=== PATIENT | female | born 1955 | race Caucasian/White ===

== ENCOUNTER 2022-06-24 00:40 | Observation (INO) | payer MEDICARE, MEDICAID, SELFPAY ==
[2022-06-24] VITALS (97 sets, daily range): BP systolic 143–222; BP diastolic 73–118; PULSE 77–113; RESP 13–36; TEMP 36.3–36.7; O2SAT 90–100; BMI 21.1
--- NOTE | 2022-06-24 00:57 | PC.NURSE ---
After getting patient into the room , she has become confused, combative and is resistant to care. Pt. was screaming and trying to grab staff.
--- NOTE | 2022-06-24 00:58 | ECG_ITS ---
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 Measurements Intervals [place] Rate: 95 P: WI: QRS: 72 QRSD: 93 T: 66 QT: 366 QTc: 460 Interpretive Statements Sinus rhythm No previous ECG available for comparison Electronically Signed On 06-24-2022 8:24:58 CDT by Rupesh Roberts M.D. [email or web address]
--- NOTE | 2022-06-24 00:58 | XRR_ITS ---
PROCEDURE INFORMATION: Exam: XR Chest Exam date and time: 06/24/2022 1:18 AM Age: 66 years old Clinical indication: Shortness of breath; Additional info: AMS TECHNIQUE: Imaging protocol: Radiologic exam of the chest. Views: 1 view. COMPARISON: No relevant prior studies available. FINDINGS: Lungs: There is a patchy infiltrate in the left mid lung suspicious for pneumonia. Pleural spaces: Unremarkable. No pleural effusion. No pneumothorax. Heart/Mediastinum: Unremarkable. No cardiomegaly. Bones/joints: Unremarkable. XR/XR chest 1V portable [id number] IMPRESSION: There is a patchy infiltrate in the left mid lung suspicious for pneumonia.
--- NOTE | 2022-06-24 00:58 | CTR_ITS ---
PROCEDURE INFORMATION: Exam: CT Head Without Contrast Exam date and time: 06/24/2022 1:12 AM Age: 66 years old Clinical indication: Altered mental status/memory loss; Additional info: AMS TECHNIQUE: Imaging protocol: Computed tomography of the head without contrast. Radiation optimization: All CT scans at this facility use at least one of these dose optimization techniques: automated exposure control; mA and/or kV adjustment per patient size (includes targeted exams where dose is matched to clinical indication); or iterative reconstruction. COMPARISON: No relevant prior studies available. RADIATION DOSE METRICS: Total DLP (mGy-cm): 1346.88 FINDINGS: Brain: No cerebral/cerebellar infarct. No brain parenchymal or extra-axial hemorrhage. Cerebral ventricles: No ventriculomegaly. Paranasal sinuses: Paranasal sinuses are clear. No air-fluid level. Mastoid air cells: Visualized mastoid air cells are clear. Bones/joints: No calvarial or skull base fracture. Soft tissues: Right frontal scalp hematoma. CT/CT head wo con* [id number] IMPRESSION: 1. No acute infarct or hemorrhage. 2. No calvarial or skull base fracture.
[2022-06-24 01:11] LABS: Basophils # 0.1 10^3/uL (0.0-0.1); Eosinophils % 0.3 %; Hematocrit 40.3 % (37.0-47.0); Hemoglobin 12.6 g/dL (11.5-15.3); Lymphocytes # 1.4 10^3/uL (0.8-4.8); Lymphocytes % 16.3 %; Mean Corpuscular HGB Conc 31.3 g/dL (30.0-36.0); Mean Corpuscular Hemoglobin 27.2 pg (28.0-34.0); Mean Corpuscular Volume 86.9 fl (81-99); Mean Platelet Volume 10.2 fL (7.4-10.4); Monocytes # 0.6 10^3/uL (0.2-0.9); Monocytes % 6.8 %; Neutrophils # 6.57 10^3/uL (1.8-7.7); Neutrophils % 75.4 %; Nucleated Red Blood Cells % 0 %; Platelet Count 421 10^3/cmm (130-400); Red Blood Count 4.64 10^6/uL (4.1-5.3); White Blood Count 8.7 10^3/uL (4.0-10.0)
[2022-06-24 01:26] LABS: ABG PCO2 39.2 mmHg (35-45); ABG PH Result 7.41 (7.35-7.45); Base Excess ABG -0.1 mmol/L (-2.0-2.0); Blood Gas Allen Test Pos; Blood Gas Operator Identificat WALCI; Blood Gas Sample Site Radial, left; Blood Gas Sample Type Arterial; HCO3 ABG 24.6 mmol/L (22-26); Oxygen Device NC; PO2 ABG 72.6 mmHg (80.0-100.0)
[2022-06-24 01:34] LABS: Alanine Aminotransferase 10 U/L (0-33); Albumin Level 4.3 g/dL (3.5-5.2); Alkaline Phosphatase 96 U/L (35-105); Anion Gap 21.2 (5-19); Aspartate Amino Transferase 22 U/L (0-32); Blood Urea Nitrogen 10 mg/dL (8-23); Calcium 9.3 mg/dL (8.5-10.5); Carbon Dioxide 21 mmol/L (22-29); Chloride 106 mmol/L (98-107); Globulin 2.7 g/dL (1.3-4.6); Glucose 139 mg/dL (65-115); Osmolality Calculated 301 mOsm/kg (285-295); Potassium 3.2 mmol/L (3.5-5.1); Sodium 145 mmol/L (136-145); Total Bilirubin 0.4 mg/dL (0.15-1.2)
[2022-06-24 01:35] LABS: Ammonia 43 umol/L (11-51)
[2022-06-24 01:38] LABS: Acetaminophen < 5.0 ug/mL (10-30); Alcohol Level < 10 mg/dL (0-10); Creatine Phosphokinase 386 U/L (26-192); Salicylate < 0.3 mg/dL (3-10)
[2022-06-24] MEDS: midazolam 1 mg/mL INJ 2 mL 2 MG IVP ×2 (01:41→04:55)
[2022-06-24] MEDS: ziprasidone 20 mg/mL SDV IM (01:41)
[2022-06-24 03:02] LABS: Bilirubin Urine Neg (Negative); Blood Urine 2+ (Negative); Glucose Urine UA Norm (Normal); Ketones Urine 1+ (Negative); Leukocyte Esterase Urine 2+ (Negative); Nitrate Urine Negative (Negative); Protein Urine Neg (Negative); Urine Appearance Cloudy (CLEAR); Urine Color Yellow (Yellow); Urobilinogen Urine Norm (Negative); pH Urine 5 (5-7)
[2022-06-24 03:03] LABS: Add Urine Microscopic? YES
[2022-06-24 03:06] LABS: Amphetamines Screen Urine Negative (Negative); Barbiturates Screen Urine Negative (Negative); Benzodiazepines Screen Urine Negative (Negative); Cocaine Screen Urine Negative (Negative); Opiate Screen Urine Positive (Negative); PCP Screen Urine Negative (Negative); THC Screen Urine Positive (Negative)
[2022-06-24 03:07] LABS: RBC Urine 0-4 /hpf (0-2); WBC Urine 25-40 /hpf (0-5)
[2022-06-24 03:08] LABS: Add Urine Culture? No; Bacteria Urine 2+ /hpf; Hyaline Casts Urine RARE /lpf; Mucus Urine TRACE /hpf; Squamous Epithelial Cell Urine 25-40 /hpf (0-5)
[2022-06-24] MEDS: sodium chloride 0.9% 1,000 ML 999 ML IV ×2 (04:55→06:17)
[2022-06-24] MEDS: cefTRIAXone 1,000 MG in sodium chloride 0.9% (plus) 50 ML 100 MG IV (04:55)
--- NOTE | 2022-06-24 05:15 | ED.C_ITS ---
HPI - Psych General: Chief Complaint: Psychiatric Symptoms Stated Complaint: PSYCH EVAL - AMS Time Seen by Provider: 06/24/22 00:45 Source: patient and EMS History of Present Illness: 66-year-old female presents by ambulance. Evidently police were called for a well check to her home, and found her naked in bed screaming, not making sense. She presents here saying some words, but not answering questions appropriately. She is thrashing about in bed. She is given IM ketamine on arrival due to agitation with some thrashing about as a precaution. She is a poor historian. complaint: altered mental status Onset (ago): unknown Duration: constant History of same: No Relieving factors: none Exacerbating factors: none Associated psychiatric symptoms: other Associated symptoms: Reports delusions Treatments prior to arrival: none Review of Systems General: Reports: ROS unobtainable due to medical condition and ROS unobtaina ble due to mental status [facility] PFSH: Surgical History History of tubal ligation Social History Smoking and tobacco status: current every day smoker Alcohol intake: never Substance/Drug Use: never Physical Exam Const: COMMON NORMALS: alert EXAM LIMITATIONS: altered mental status and behavioral limitations GENERAL APPEARANCE: in distress and ill appearing; not cooperative ORIENTATION/CONSCIOUSNESS: Yes oriented to person; not oriented to place and not oriented to time HENMT: COMMON NORMALS: normocephalic, atraumatic and Normal external nose present HEAD & SCALP: normocephalic and atraumatic FACE & SINUS: normal facial exam and face symmetric NOSE: Normal external nose present Eye: COMMON NORMALS: Equal, round and reactive pupils present and EOMs intact bilaterally PUPIL: Yes Equal, round and reactive pupils present Neck/C-Spine: GENERAL: Yes trachea midline Chest: COMMONS NORMALS: normal inspection of the chest CHEST: Yes Symmetrical chest wall rise Resp: COMMON NORMALS: normal respiratory effort, No retractions and No use of accessory muscles Cardio: COMMON NORMALS: regular rhythm RATE: tachycardic RHYTHM: regular rhythm GI: INSPECTION: Yes normal to inspection and No abdominal distension Extremity: COMMON NORMALS: normal to inspection and full ROM Neuro: KRISTA COMA SCALE: document GCS findings Krista coma scale eye opening: Spontaneous [place] coma scale verbal response: Confused [place] coma scale motor response: Localising [place] coma scale total score: 13 SENSORIUM/ORIENTATION: Yes alert, Yes oriented to person, No oriented to place and No oriented to time SPEECH: speech normal MOTOR EXAM: 5/5 motor strength present throughout Psych: ATTITUDE: Yes uncooperative, Yes Belligerent attititude/behavior present, Yes agitated, Yes aggressive and Yes hostile ACTIVITY/MOTOR BEHAVIOR: Yes psychomotor agitation SPEECH: Yes loud and No slurred MOOD & AFFECT: Yes Labile affect present THOUGHT PROCESS: disorganized THOUGHT CONTENT: Yes delusions ATTENTION/CONCENTRATION: Yes attention grossly impaired MEMORY/COGNITION: Yes memory grossly impaired and Yes cognition grossly impaired INSIGHT: Poor insight present (Psych) JUDGEMENT: Limited judgement present (Psych) Skin: COMMON NORMALS: no wounds Face to Face: Restrn/Seclusion Events leading up to initiation: Verbalizing threat to self or others and Combative/Striking out at staff or others Evaluation of patient's immediate situation: No signs of psychological distress Patient reaction since intervention applied: De-escalation/no displays of violent/destructive behavior Recent labs reviewed: Yes Review of medications: Yes Patient's current medical/behavioral condition: No new concerns since last ROS Need for restraint or seclusion is: No longer present Attending notified: Attending completed assessment Course Vital Signs: Vital signs: Vital Signs Temperature 97.3 F L 06/24/22 00:41 Pulse Rate 96 06/24/22 13:00 Respiratory Rate 15 06/24/22 13:00 Blood Pressure 169/94 06/24/22 13:00 Pulse Oximetry 100 06/24/22 13:00 Oxygen Delivery Me thod 06/24/22 13:00 Oxygen Flow Rate 4 06/24/22 01:27 [facility] - Psych Medical Decision Making 66-year-old female with significant mental status change. She presents agitated, thrashing about, swinging out somewhat violently. She had to be physically restrained for a very short period, followed by ketamine injection intramuscularly and then Geodon and midazolam. This seemed to work well. She answer some questions appropriately, knows her 's phone number and that he is in the hospital in [place]. Other question she does not answer appropriately. Her vitals are stable. She was placed on oxygen following sedative injection for a short duration. CBC is essentially normal. Her potassium is mildly low. She is hydrated with IV fluids. There may be a patchy infiltrate in the left upper midlung field by x-ray. Head CT is negative. She is treated with IV Rocephin. She will be admitted for acute mental status change. Her urine drug screen is positive for opiates and marijuana. She is not intoxicated with alcohol. Urinalysis is contaminated, but does show 2+ l eukocyte esterase. Lab Data : 06/24/22 01:04 06/24/22 01:04 Radiology Impressions Chest X-Ray 06/24/22 00:58 IMPRESSION: There is a patchy infiltrate in the left mid lung suspicious for pneumonia. Head CT 06/24/22 00:58 IMPRESSION: 1. No acute infarct or hemorrhage. 2. No calvarial or skull base fracture. Laboratory Results WBC 8.7 10^3/uL (4.0-10.0) 06/24/22 01:04 RBC 4.64 10^6/uL (4.1-5.3) 06/24/22 01:04 Hgb 12.6 g/dL (11.5-15.3) 06/24/22 01:04 Hct 40.3 % (37.0-47.0) 06/24/22 01:04 MCV 86.9 fl (81-99) 06/24/22 01:04 MCH 27.2 pg (28.0-34.0) L 06/24/22 01:04 MCHC 31.3 g/dL (30.0-36.0) 06/24/22 01:04 RDW 14.0 % (12.1-15.1) 06/24/22 01:04 Plt Count 421 10^3/cmm (130-400) H 06/24/22 01:04 MPV 10.2 fL (7.4-10.4) 06/24/22 01:04 Neut % (Auto) 75.4 % 06/24/22 01:04 Lymph % (Auto) 16.3 % 06/24/22 01:04 [place] % (Auto) 6.8 % 06/24/22 01:04 Eos % (Auto) 0.3 % 06/24/22 01:04 Baso % (Auto) 1.0 % 06/24/22 01:04 Neut # (Auto) 6.57 10^3/uL (1.8-7.7) 06/24/22 01:04 Lymph # (Auto) 1.4 10^3/uL (0.8-4.8) 06/24/22 01:04 [place] # (Auto) 0.6 10^3/uL (0.2-0.9) 06/24/22 01:04 Eos # (Auto) 0.0 10^3/uL (0.0-0.8) 06/24/22 01:04 Baso # (Auto) 0.1 10^3/uL (0.0-0.1) 06/24/22 01:04 Nucleated RBC % (auto) 0 % 06/24/22 01:04 Nucleated RBCs # 0.0 /100WBC 06/24/22 01:04 ESR 36 mm/hr (0-15) H 06/24/22 01:04 Specimen Type Arterial 06/24/22 01:15 Sample Site Radial, left 06/24/22 01:15 ABG pH 7.41 (7.35-7.45) 06/24/22 01:15 ABG pCO2 39.2 mmHg (35-45) 06/24/22 01:15 ABG pO2 72.6 mmHg (80.0-100.0) L 06/24/22 01:15 ABG HCO3 24.6 mmol/L (22-26) 06/24/22 01:15 ABG Base Excess -0.1 mmol/L (-2.0-2.0) 06/24/22 01:15 Hermann Test Pos 06/24/22 01:15 Hematocrit 38.0 % (37-47) 06/24/22 01:15 O2 Delivery Device Nc 06/24/22 01:15 O2 Liters/Min 4.0 % 06/24/22 01:15 Anthropology Instructor ID [place] 06/24/22 01:15 Sodium 145 mmol/L (136-145) 06/24/22 01:04 Potassium 3.2 mmol/L (3.5-5.1) L 06/24/22 01:04 Chloride 106 mmol/L (98-107) 06/24/22 01:04 Carbon Dioxide 21 mmol/L (22-29) L 06/24/22 01:04 Anion Gap 21.2 (5-19) H 06/24/22 01:04 BUN 10 mg/dL (8-23) 06/24/22 01:04 Creatinine 0.6 mg/dL (0.5-0.9) 06/24/22 01:04 GFR Calculation 100.0 mL/min (90-130) 06/24/22 01:04 Glucose 139 mg/dL (65-115) H 06/24/22 01:04 Calculated Osmolality 301 mOsm/kg (285-295) H 06/24/22 01:04 Lactate 4.0 mmol/L (0.5-2.2) H 06/24/22 01:04 Calcium 9.3 mg/dL (8.5-10.5) 06/24/22 01:04 Total Bilirubin 0.4 mg/dL (0.15-1.2) 06/24/22 01:04 AST 22 U/L (0-32) 06/24/22 01:04 ALT 10 U/L (0-33) 06/24/22 01:04 Alkaline Phosphatase 96 U/L (35-105) 06/24/22 01:04 Ammonia 43 umol/L (11-51) 06/24/22 01:04 Creatine Kinase 386 U/L (26-192) H* 06/24/22 01:04 C-Reactive Protein 31.3 mg/L (0.0-4.9) H 06/24/22 01:04 NT-Pro-B Natriuret Pep 467 pg/mL (0-125) H 06/24/22 01:04 Total Protein 7.0 g/dL (6.6-8.7) 06/24/22 01:04 Albumin 4.3 g/dL (3.5-5.2) 06/24/22 01:04 Globulin 2.7 g/dL (1.3-4.6) 06/24/22 01:04 Procalcitonin 0.06 ng/mL (0-0.5) 06/24/22 01:04 Urine Color Yellow (Yellow) 06/24/22 02:54 Urine Appearance Cloudy (CLEAR) 06/24/22 02:54 Urine pH 5 (5-7) 06/24/22 02:54 Ur Specific [place] 1.020 (1.005-1.030) 06/24/22 02:54 Urine Protein Neg (Negative) 06/24/22 02:54 Urine Glucose (UA) Norm (Normal) 06/24/22 02:54 Urine Ketones 1+ (Negative) H 06/24/22 02:54 Urine Blood 2+ (Negative) H 06/24/22 02:54 Urine Nitrate Negative (Negative) 06/24/22 02:54 Urine Bilirubin Neg (Negative) 06/24/22 02:54 Urine Urobilinogen Norm mg/dL (Negative) 06/24/22 02:54 Ur Leukocyte Esterase 2+ (Negative) H 06/24/22 02:54 Urine RBC 0-4 /hpf (0-2) H 06/24/22 02:54 Urine WBC 25-40 /hpf (0-5) H 06/24/22 02:54 Ur Squamous Epith Cells 25-40 /hpf (0-5) H 06/24/22 02:54 Amorphous Sediment Not Reportable 06/24/22 02:54 Urine Bacteria 2+ /hpf (NONE) H 06/24/22 02:54 Hyaline Casts Rare /lpf 06/24/22 02:54 Urine Mucus Trace /hpf 06/24/22 02:54 Salicylates < 0.3 mg/dL (3-10) L 06/24/22 01:04 Salicylates Cancelled 06/24/22 01:04 Urine Opiates Screen Positive ng/mL (Negative) H 06/24/22 02:54 Acetaminophen < 5.0 ug/mL (10-30) L 06/24/22 01:04 Acetaminophen Cancelled 06/24/22 01:04 Ur Barbiturates Screen Negative ng/mL (Negative) 06/24/22 02:54 Ur Phencyclidine Scrn Negative ng/mL (Negative) 06/24/22 02:54 Ur Amphetamines Screen Negative ng/mL (Negative) 06/24/22 02:54 U Benzodiazepines Scrn Negative ng/mL (Negative) 06/24/22 02:54 Urine Cocaine Screen Negative ng/mL (Negative) 06/24/22 02:54 U Marijuana (THC) Screen Positive ng/mL (Negative) H 06/24/22 02:54 Ethyl Alcohol < 10 mg/dL (0-10) 06/24/22 01:04 Discharge Plan Discharge Patient Disposition: Admitted As Inpatient Admit Provider: Dionicio Henson Clinical Impression: Altered mental status, Acute UTI, Pneumonia Condition: Stable Coding Level of Care Code ED Auto Porter for Chg Fwd Exam Problem Focused
--- NOTE | 2022-06-24 05:46 | PM.HP ---
Providers/Chief Complaint Admitting Physician: Dionicio Henson MD Primary Care Provider: Heidi Sullivan DO Chief Complaint: PSYCH EVAL - AMS History of Present Illness Martina Alberts is a 66 year old female who presents by ambulance, due to concerns for altered mental status. The story that I received from the emergency room, was police were called out to patient's home for a wellness check, and found her naked in bed screaming, not making sense. She is thrashing around in bed, not making sense, poor historian, so she was brought to [facility] for evaluation. In the emergency room due to her agitation, she received ketamine, Versed, fluids, antibiotics, Geodon. During my examination she is a bit more calm, but her speech seems pressured, and her expressions seem exaggerated. She is alert to person, to place, she knows the year, she knows the president. She tells me that she is here in the hospital because her could not reach her so he called the police. She also keeps repeating his Social Security number, she wants me to check it. She tells me that she does not know why she is here, she really does not have any complaints, she tells me that she lives here in [place], then corrects herself to [place], her children I will off she tells me that her is in [place], possibly hospitalized I cannot get the details of the information from her, as she keeps jumping from [id number]. It is difficult to get a straightforward answer from her. She keeps wanting to sit up, she does complain of back pain, she does tell me that she took hydrocodone and baclofen and something else she cannot remember for her back pain. She tells me her doctor gave it to her, she also took another medication which she cannot remember. She does not know the medications she takes, she is trying to remember them but she cannot name them. Denies any heart, denies history of stroke, present history of lung disease, adamantly declines marijuana use. She is not sure how many pills she took, she denies any suicidal ideation, denies any headache, no blurry vision, no nausea, vomiting, Review of Systems Const: Denies: fever(s) or chills Eyes: Denies: change in vision Card: Denies: chest pain Resp: Denies: dyspnea GI: Denies: abdominal pain : Denies: flank pain or difficulty voiding Musc: Denies: back pain Neuro: Denies: headache(s) or Slurred speech present Medications/Allergies Allergies Allergy/AdvReac Type Severity Reaction Status Date / Time Penicillins Allergy Unknown Verified 06/24/22 04:46 PFSH Acute PFSH: Surgical History (Updated 06/24/22 @ 05:50 by Dionicio Henson MD) History of tubal ligation Social History (Updated 06/24/22 @ 05:50 by Dionicio Henson MD) Smoking and tobacco status: current every day smoker Alcohol intake: never Substance/Drug Use: never Vitals/I&O/Wt Last Vital Signs Temp 97.3 F L 06/24/22 00:41 Pulse 79 06/24/22 01:27 Resp 20 H 06/24/22 01:27 BP 168/84 06/24/22 01:27 Pulse Ox 98 06/24/22 01:27 O2 Del Method 06/24/22 01:27 O2 Flow Rate 4 06/24/22 01:27 Weight last 48 hrs Weight 61.235 kg Physical Exam Const: COMMON NORMALS: no acute distress and patient oriented x3 HENMT: COMMON NORMALS: normocephalic HEAD & SCALP: normocephalic Neck/C-Spine: COMMON NORMALS: no JVD Resp: COMMON NORMALS: normal respiratory effort, No retractions, No use of accessory muscles and clear to auscultation bilaterally AUSCULTATION: clear to auscultation bilaterally Cardio: COMMON NORMALS: no JVD, regular rate, regular rhythm, S1 normal heart sound present and S2 normal heart sound present RATE: regular rate RHYTHM: regular rhythm HEART SOUNDS: S1 normal heart sound present and S2 normal heart sound present GI: COMMON NORMALS: Normal to inspection, nondistended, normoactive bowel sounds present, Soft to palpation, non-tender, No hepatosplenomegaly present, no masses and no bruits PALPATION: Yes Soft to palpation and Yes No hepatosplenomegaly present Extremity: COMMON NORMALS: capillary refill normal, no clubbing, cyanosis or edema, no calf tenderness and no pedal edema Neuro: COMMON NORMALS: patient oriented x3, CN's II-XII intact bilaterally, moves all extremities and no focal motor deficits Psych: APPEARANCE: Yes unkempt ATTITUDE: Yes bizarre ACTIVITY/MOTOR BEHAVIOR: Yes psychomotor agitation and Yes hyperactivity SPEECH: Yes excessive and Yes rapid MOOD & AFFECT: Yes elevated mood THOUGHT PROCESS: disorganized and Flight of ideas present THOUGHT CONTENT: No Suicidality present and No Homicidality present ATTENTION/CONCENTRATION: Yes attention grossly impaired and Yes concentration grossly impaired Data : 06/24/22 01:04 06/24/22 01:04 A&P Assessment and plan (1) Altered mental status: Status: Acute Plan Altered mental status -Etiology unclear -Potentially polypharmacy, with marijuana, hydrocodone, baclofen and other medications which she cannot remember -Possible medication overdose -Chest x-ray does show pneumonia -Potential UTI -Further blood work has been ordered Plan -Monitor in ICU -Broad-spectrum antibiotic therapy -Follow blood cultures -Serial EKGs serial troponins, telemetry monitoring -Full code -Lovenox for DVT prophylaxis -If the rest of her blood work comes back negative and her mentation remains confused, she might require further work-up, potentially's psychiatric evaluation Attestations Medical Necessity Statement*: Patient requires hospitalization, outpatient observation, for altered mental status Coding Level of Care Code Acute Regional Refrigerated Cdl Truck Driver for Jostin Cabrera Diagnoses Altered mental status R41.82
[2022-06-24 05:54] LABS: Erythrocyte Sedimentation Rate 36 mm/hr (0-15)
[2022-06-24 06:05] LABS: NT Pro B Type Natriuretic Pept 467 pg/mL (0-125); Procalcitonin 0.06 ng/mL (0-0.5)
[2022-06-24 06:16] LABS: C Reactive Protein 31.3 mg/L (0.0-4.9)
[2022-06-24 06:28] LABS: Ammonia 17 umol/L (11-51); Troponin(5th) Baseline 15 ng/L (0-10)
[2022-06-24 06:30] LABS: Lactic Sepsis W/Reflex 1.1 mmol/L (0.5-2.2)
--- NOTE | 2022-06-24 07:08 | PC.NURSE ---
Patient transported to ICU 3 on portable monitoring via stretcher by NOÉ Bennett. Patient has generalized bumps bruising throughout body. Large knot with bruise above right eye. Patient is alert and oriented to self. Does not know time, place, or location. Left thigh is swollen around injection site.
--- NOTE | 2022-06-24 07:21 | ECG_ITS ---
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 Measurements Intervals [place] Rate: 78 P: MT: QRS: 69 QRSD: 91 T: 52 QT: 380 QTc: 434 Interpretive Statements Sinus rhythm ABNORMAL RHYTHM ECG Compared to ECG 06/24/2022 01:00:37 No change Electronically Signed On 06-24-2022 18:14:18 CDT by Rupesh Roberts M.D. [id number]
[2022-06-24] MEDS: azithromycin 500 MG in sodium chloride 0.9% 250 ML 250 MG IV (07:25)
[2022-06-24] MEDS: sodium chloride 0.9% 1,000 ML 75 ML IV (07:25)
[2022-06-24] MEDS: enoxaparin 40 mg/0.4 mL Syringe SUBCUT (07:26)
[2022-06-24] MEDS: pantoprazole DR 40 mg Tablet PO (08:19)
[2022-06-24] MEDS: ondansetron 2 mg/ML SDV 2 mL 4 MG IVP (08:19)
[2022-06-24 08:27] LABS: Troponin 5 2HR 10.75 ng/L (0-10)
[2022-06-24 08:53] LABS: Troponin 5 2HR Delta -4.25 ABS# (0-10)
[2022-06-24 11:56] LABS: Troponin 5 6HR 11.67 ng/L (0-10)
[2022-06-24 13:06] LABS: Troponin 5 6HR Delta -3.33 ng/L (0-12)
--- NOTE | 2022-06-24 15:47 | PM.MISC ---
Miscellaneous Note Note: I spoke with patient's this morning, Patient was seen in the ICU She is awake and alert, no signs of confusion She is able to tell me her name, date of , she is not disoriented at all When asked about marijuana use she said she has been taking CBD Gummies from an authentic licensed store At the time of my evaluation I did not appreciate any strokelike features No facial droop She is able to move her extremities No asterixis No active signs of meningitis or encephalitis She is afebrile Able to follow commands Very pleasant and cooperative during my evaluation Looks dehydrated She has multiple bruises and erythema nodosum all over her shins bilaterally No active bleeding No joint pain S1, S2 No active chest pain Breathing well on room air Her speech is pressured however she is calm and cooperative Disorganized thinking Assessment and plan Metabolic encephalopathy related to UTI and community-acquired pneumonia This is also exacerbated secondary to polypharmacy and marijuana Conservative management She can be transferred out of ICU I would not recommend hydroxyzine or temazepam/baclofen during her hospitalization She is endorsing to using CBD Gummies No signs of stroke or encephalitis She is hypertensive Optimize antihypertensive regimen at home takes lisinopril 10 mg, will increase up to 40 mg Continue antibiotics for her UTI We will follow-up urine culture Hypokalemia: Repleted Lactic acidemia related to dehydration: Improved No QTC prolongation Troponin trending down TSH 2.2, check free T4 level Spoke with her She is full code Once her organic causes are treated she will need psych evaluation Regular diet DVT prophylaxis with Lovenox on board Secondary to hypertension I will discontinue her IV fluids
[2022-06-24] MEDS: lisinopril 10 mg Tablet 30 MG PO (16:57)
[2022-06-24] MEDS: amlodipine 5 mg Tablet PO (16:58)
--- NOTE | 2022-06-24 17:10 | PC.NURSE ---
Patient request that I call [place] police to see that her front door is locked. This was done.
[2022-06-24 17:17] LABS: Ammonia 31 umol/L (11-51)
[2022-06-24 17:26] LABS: Free T4 Free Thyroxine 1.14 ng/dL (0.82-1.77)
[2022-06-25] VITALS (62 sets, daily range): BP systolic 130–152; BP diastolic 64–85; PULSE 73–103; RESP 10–27; TEMP 36.9; O2SAT 94–98
[2022-06-25 04:30] LABS: Basophils # 0.1 10^3/uL (0.0-0.1); Basophils % 1.3 %; Eosinophils # 0.1 10^3/uL (0.0-0.8); Eosinophils % 1.8 %; Hematocrit 32.1 % (37.0-47.0); Hemoglobin 9.6 g/dL (11.5-15.3); Lymphocytes # 1.5 10^3/uL (0.8-4.8); Lymphocytes % 24.4 %; Mean Corpuscular HGB Conc 29.9 g/dL (30.0-36.0); Mean Corpuscular Hemoglobin 27.2 pg (28.0-34.0); Mean Corpuscular Volume 90.9 fl (81-99); Mean Platelet Volume 10.5 fL (7.4-10.4); Monocytes # 0.5 10^3/uL (0.2-0.9); Neutrophils # 3.81 10^3/uL (1.8-7.7); Neutrophils % 63.3 %; Nucleated Red Blood Cells % 0 %; Platelet Count 299 10^3/cmm (130-400); Red Blood Count 3.53 10^6/uL (4.1-5.3); Red Cell Distribution Width 14.6 % (12.1-15.1)
[2022-06-25 04:59] LABS: Alanine Aminotransferase 9 U/L (0-33); Albumin Level 3.1 g/dL (3.5-5.2); Alkaline Phosphatase 73 U/L (35-105); Anion Gap 12.8 (5-19); Aspartate Amino Transferase 20 U/L (0-32); Blood Urea Nitrogen 6 mg/dL (8-23); Calcium 8.5 mg/dL (8.5-10.5); Carbon Dioxide 26 mmol/L (22-29); Chloride 107 mmol/L (98-107); Globulin 2.7 g/dL (1.3-4.6); Glomerular Filtration Rate 159.7 mL/min (90-130); Glucose 106 mg/dL (65-115); Magnesium 1.9 mg/dL (1.7-2.3); Osmolality Calculated 292 mOsm/kg (285-295); Potassium 3.8 mmol/L (3.5-5.1); Sodium 142 mmol/L (136-145); Total Bilirubin 0.2 mg/dL (0.15-1.2); Total Protein 5.8 g/dL (6.6-8.7)
[2022-06-25 05:01] LABS: C Reactive Protein 19.9 mg/L (0.0-4.9); Creatine Phosphokinase 254 U/L (26-192)
--- NOTE | 2022-06-25 07:30 | PC.NURSE ---
Shift Note Frequent safety and comfort rounds continue. Orders and/or nursing care completed as indicated. Patient monitored for response to intervention and treatment(s). Education provided includes medication and treatment plan. Patient verbalized understanding of teaching but needs further reinforcement. Patient remains on room air and is alert/oriented. No wounds or skin issues noted at this time. Patient reported pain overnight, PRN pain medication administered please see MAR for detail. Will continue to monitor.
[2022-06-25] MEDS: azithromycin 250 mg Tablet 500 MG PO (09:17)
[2022-06-25] MEDS: amlodipine 5 mg Tablet PO (09:17)
[2022-06-25] MEDS: enoxaparin 40 mg/0.4 mL Syringe SUBCUT (09:17)
[2022-06-25] MEDS: lisinopril 10 mg Tablet 30 MG PO (09:17)
[2022-06-25] MEDS: pantoprazole DR 40 mg Tablet PO (09:17)
[2022-06-25] MEDS: acetaminophen 325 mg Tablet 650 MG PO ×2 (10:39→16:19)
--- NOTE | 2022-06-25 13:05 | PC.CHAP ---
Pastoral Care Encounter/Spiritual Assessment Type of Contact [] Declined water registrar visit [] Patient/Family/Request visit [] Outpatient visit [] Follow-up visit [] Physician referral [] Code/Alert [x] Routine visit [] Staff referral [] Actively dying [] Patient sleeping [] Family support [] [] Out of room [] Palliative care [] [x] Receiving care in room [] Pre-surgical visit [] Trauma [] Long length of stay [x] ICU visit [] Other: Relational/Emotional Strength [] Patient feels connected with others/family/visitors/staff [] Distress [] Loneliness/isolation [] Abandonment Spirituality of Patient [] Person of Queenie [] Attends Advent of their Queenie [] Believes in Prayer [] Reads Bible or Cheondoism materials [] There are Spiritual issues to be addressed Acquisition Analyst Interventions [x] Prayer [] Active listening [] Non-anxious presence [] Spiritual/emotional support [] Crisis/trauma care [] Spiritual counseling [] Bereavement support [] Provided bereavement packet [] Provided Bible/devotional materials [] Provided toy/stuffed animal, coloring book to patient or family member [] Provided Communion [] Anointing/[place] [] Salvation [x] Completed spiritual assessment [] Other: Impact on Illness or Injury [] Angry [] Fearful [] Anxious [] Often cries [] Exhaustion [] Unable to work [] Unable to attend uatsdin [] Unable to walk/stand [] Unable to read [] Unable to drive [] Unable to eat/drink [] Unable to sleep [] Unable to be with family [] Patient intubated [] Other: Summary Time spent with patient
--- NOTE | 2022-06-25 13:40 | P.DS_ITS ---
Discharge Providers Date of Admission: 06/24/22 05:41 Date of Discharge: June 25, 2022 Attending Provider at Admission: Dionicio Henson MD Attending Provider at Discharge: Beto Byers Primary Care Provider: Heidi Sullivan DO Diagnoses at Discharge Discharge Diagnosis (1) Altered mental status: Status: Acute Reason for Visit Reason for Visit: PSYCH EVAL - AMS Hospital Course Hospital Course 66-year-old lady was admitted after being found confused at home on a wellness check after alcohol by her , in ER with significant confusion, restlessness and agitation, required antipsychotics and sedatives on presentation, with finding of acute encephalopathy of unclear etiology, possibly acute metabolic encephalopathy secondary to medications, baclofen, temazepam were held, as was gabapentin, opioid, and later also reporting CBD gummy use. On presentation urine with pyuria, but also squamous cells, due to possible UTI was empirically covered with antibiotics with ceftriaxone, also received azithromycin due to noted patchy infiltrate in the left midlung suspicious for pneumonia. She is remained afebrile, without leukocytosis. Initially on 4 L oxygen nasal cannula but with recovery in mental status saturating well on room air. She is awake, alert, oriented x3. She reports she is now feeling well, and states that she does remember being confused earlier. She states that she had been under quite a bit of stress recently, had a bad year, including finding of malignancy in her left breast, requiring lumpectomy, subsequently with infection which was poorly healing but has healed since, as well as radiation therapy. She denies any depression, however, and states that she has had good support at home from her . She states that she was in pain in her left thigh due to injection given to her and EMS and states there was a bruise on her leg from the injection being given. She, however, also states the bruise on her knee is from her hitting the 2 x 4 bed frame that she and her have for their waterbed. She denies any falls. She has been getting up here to the commode and states has felt well. She requests to go home. On discharge she is asked to complete antibiotic course with Levaquin for possible pneumonia, possible UTI. Discontinue baclofen dose of temazepam is decreased. Please discuss with her weaning off or continuation on lower dose. Please review intermittently her medications to help avoid the episodes of potentially dangerous encephalopathy. Physical Exam Const: COMMON NORMALS: patient oriented x3 and alert GENERAL APPEARANCE: cooperative ORIENTATION/CONSCIOUSNESS: Yes awake HENMT: COMMON NORMALS: oropharynx normal Neck/C-Spine: COMMON NORMALS: no JVD Resp: COMMON NORMALS: normal respiratory effort and clear to auscultation bilaterally AUSCULTATION: clear to auscultation bilaterally Cardio: COMMON NORMALS: no JVD, regular rhythm, S1 normal heart sound present, S2 normal heart sound present and No murmurs present (Cardio) RHYTHM: regular rhythm HEART SOUNDS: S1 normal heart sound present and S2 normal heart sound present GI: COMMON NORMALS: Normal to inspection, nondistended, normoactive bowel sounds present, Soft to palpation and non-tender PALPATION: Yes Soft to palpation Extremity: COMMON NORMALS: no joint enlargement and no pedal edema Neuro: COMMON NORMALS: patient oriented x3 and moves all extremities SENSORIUM/ORIENTATION: Yes alert Skin: COMMON NORMALS: no rashes or lesions noted GENERAL SKIN EXAM: no swapnil hes or lesions noted OTHER: Bruising of left lower extremity, left knee. Discharge Data Studies Completed and Pending Completed Studies During Hospitalization Category Date Time Status CT head wo con* [id number] Stat Cat Scan 06/24/22 00:58 Completed XR chest 1V portable [id number] Stat Exams 06/24/22 00:58 Completed Pending at discharge Category Date Time Status Blood Culture Stat Lab 06/24/22 05:55 Results Complete Blood Count w/Auto AM LABS Lab 06/26/22 04:00 Ordered Complete Blood Count w/Auto AM LABS Lab 06/27/22 04:00 Ordered Comprehensive Metabolic Panel AM LABS Lab 06/26/22 04:00 Ordered Comprehensive Metabolic Panel AM LABS Lab 06/27/22 04:00 Ordered Drug Screen Serum [Serum Drug Panel 7] Routine Lab 06/24/22 08:00 Received Magnesium AM LABS Lab 06/26/22 04:00 Ordered Magnesium AM LABS Lab 06/27/22 04:00 Ordered Phosphorus AM LABS Lab 06/26/22 04:00 Ordered Phosphorus AM LABS Lab 06/27/22 04:00 Ordered Radiology Impressions Chest X-Ray 06/24/22 00:58 IMPRESSION: There is a patchy infiltrate in the left mid lung suspicious for pneumonia. Head CT 06/24/22 00:58 IMPRESSION: 1. No acute infarct or hemorrhage. 2. No calvarial or skull base fracture. Laboratory Results WBC 6.0 10^3/uL (4.0-10.0) 06/25/22 03:19 RBC 3.53 10^6/uL (4.1-5.3) L 06/25/22 03:19 Hgb 9.6 g/dL (11.5-15.3) L 06/25/22 03:19 Hct 32.1 % (37.0-47.0) L 06/25/22 03:19 MCV 90.9 fl (81-99) 06/25/22 03:19 MCH 27.2 pg (28.0-34.0) L 06/25/22 03:19 MCHC 29.9 g/dL (30.0-36.0) L 06/25/22 03:19 RDW 14.6 % (12.1-15.1) 06/25/22 03:19 Plt Count 299 10^3/cmm (130-400) 06/25/22 03:19 MPV 10.5 fL (7.4-10.4) H 06/25/22 03:19 Neut % (Auto) 63.3 % 06/25/22 03:19 Lymph % (Auto) 24.4 % 06/25/22 03:19 Emmons % (Auto) 9.0 % 06/25/22 03:19 Eos % (Auto) 1.8 % 06/25/22 03:19 Baso % (Auto) 1.3 % 06/25/22 03:19 Neut # (Auto) 3.81 10^3/uL (1.8-7.7) 06/25/22 03:19 Lymph # (Auto) 1.5 10^3/uL (0.8-4.8) 06/25/22 03:19 Emmons # (Auto) 0.5 10^3/uL (0.2-0.9) 06/25/22 03:19 Eos # (Auto) 0.1 10^3/uL (0.0-0.8) 06/25/22 03:19 Baso # (Auto) 0.1 10^3/uL (0.0-0.1) 06/25/22 03:19 Nucleated RBC % (auto) 0 % 06/25/22 03:19 Nucleated RBCs # 0.0 /100WBC 06/25/22 03:19 ESR 36 mm/hr (0-15) H 06/24/22 01:04 Specimen Type Arterial 06/24/22 01:15 Sample Site Radial, left 06/24/22 01:15 ABG pH 7.41 (7.35-7.45) 06/24/22 01:15 ABG pCO2 39.2 mmHg (35-45) 06/24/22 01:15 ABG pO2 72.6 mmHg (80.0-100.0) L 06/24/22 01:15 ABG HCO3 24.6 mmol/L (22-26) 06/24/22 01:15 ABG Base Excess -0.1 mmol/L (-2.0-2.0) 06/24/22 01:15 Hermann Test Pos 06/24/22 01:15 Hematocrit 38.0 % (37-47) 06/24/22 01:15 O2 Delivery Device Nc 06/24/22 01:15 O2 Liters/Min 4.0 % 06/24/22 01:15 [employer] ID [place] 06/24/22 01:15 Sodium 142 mmol/L (136-145) 06/25/22 03:19 Potassium 3.8 mmol/L (3.5-5.1) 06/25/22 03:19 Chloride 107 mmol/L (98-107) 06/25/22 03:19 Carbon Dioxide 26 mmol/L (22-29) 06/25/22 03:19 Anion Gap 12.8 (5-19) 06/25/22 03:19 BUN 6 mg/dL (8-23) L 06/25/22 03:19 Creatinine 0.4 mg/dL (0.5-0.9) L 06/25/22 03:19 GFR Calculation 159.7 mL/min (90-130) H 06/25/22 03:19 Glucose 106 mg/dL (65-115) 06/25/22 03:19 Calculated Osmolality 292 mOsm/kg (285-295) 06/25/22 03:19 Lactic Acid 1.1 mmol/L (0.5-2.2) 06/24/22 05:55 Lactate 4.0 mmol/L (0.5-2.2) H 06/24/22 01:04 Calcium 8.5 mg/dL (8.5-10.5) 06/25/22 03:19 Phosphorus 3.0 mg/dL (2.5-4.5) 06/25/22 03:19 Magnesium 1.9 mg/dL (1.7-2.3) 06/25/22 03:19 Total Bilirubin 0.2 mg/dL (0.15-1.2) 06/25/22 03:19 AST 20 U/L (0-32) 06/25/22 03:19 ALT 9 U/L (0-33) 06/25/22 03:19 Alkaline Phosphatase 73 U/L (35-105) 06/25/22 03:19 Ammonia 31 umol/L (11-51) 06/24/22 16:32 Creatine Kinase 254 U/L (26-192) H 06/25/22 03:19 Troponin T Baseline 15 ng/L (0-10) H 06/24/22 05:55 Troponin T 120 Minute 10.75 ng/L (0-10) H 06/24/22 08:00 Delta Troponin T -4.25 ABS# (0-10) L 06/24/22 08:00 Troponin T Hi Sens 6Hr 11.67 ng/L (0-10) H 06/24/22 11:28 Troponin T Hi Sens 6Hr Delta -3.33 ng/L (0-12) L 06/24/22 11:28 C-Reactive Protein 19.9 mg/L (0.0-4.9) H 06/25/22 03:19 NT-Pro-B Natriuret Pep 467 pg/mL (0-125) H 06/24/22 01:04 Total Protein 5.8 g/dL (6.6-8.7) L 06/25/22 03:19 Albumin 3.1 g/dL (3.5-5.2) L 06/25/22 03:19 Globulin 2.7 g/dL (1.3-4.6) 06/25/22 03:19 Procalcitonin 0.06 ng/mL (0-0.5) 06/24/22 01:04 TSH 0.20 uIU/mL (0.27-4.20) L 06/24/22 05:55 Free T4 1.14 ng/dL (0.82-1.77) 06/24/22 16:32 Urine Color Yellow (Yellow) 06/24/22 02:54 Urine Appearance Cloudy (CLEAR) 06/24/22 02:54 Urine pH 5 (5-7) 06/24/22 02:54 Ur Specific [place] 1.020 (1.005-1.030) 06/24/22 02:54 Urine Protein Neg (Negative) 06/24/22 02:54 Urine Glucose (UA) Norm (Normal) 06/24/22 02:54 Urine Ketones 1+ (Negative) H 06/24/22 02:54 Urine Blood 2+ (Negative) H 06/24/22 02:54 Urine Nitrate Negative (Negative) 06/24/22 02:54 Urine Bilirubin Neg (Negative) 06/24/22 02:54 Urine Urobilinogen Norm mg/dL (Negative) 06/24/22 02:54 Ur Leukocyte Esterase 2+ (Negative) H 06/24/22 02:54 Urine RBC 0-4 /hpf (0-2) H 06/24/22 02:54 Urine WBC 25-40 /hpf (0-5) H 06/24/22 02:54 Ur Squamous Epith Cells 25-40 /hpf (0-5) H 06/24/22 02:54 Amorphous Sediment Not Reportable 06/24/22 02:54 Urine Bacteria 2+ /hpf (NONE) H 06/24/22 02:54 Hyaline Casts Rare /lpf 06/24/22 02:54 Urine Mucus Trace /hpf 06/24/22 02:54 Salicylates < 0.3 mg/dL (3-10) L 06/24/22 01:04 Salicylates Cancelled 06/24/22 01:04 Urine Opiates Screen Positive ng/mL (Negative) H 06/24/22 02:54 Acetaminophen < 5.0 ug/mL (10-30) L 06/24/22 01:04 Acetaminophen Cancelled 06/24/22 01:04 Ur Barbiturates Screen Negative ng/mL (Negative) 06/24/22 02:54 Ur Phencyclidine Scrn Negative ng/mL (Negative) 06/24/22 02:54 Ur Amphetamines Screen Negative ng/mL (Negative) 06/24/22 02:54 U Benzodiazepines Scrn Negative ng/mL (Negative) 06/24/22 02:54 Urine Cocaine Screen Negative ng/mL (Negative) 06/24/22 02:54 U Marijuana (THC) Screen Positive ng/mL (Negative) H 06/24/22 02:54 Ethyl Alcohol < 10 mg/dL (0-10) 06/24/22 01:04 Vitals Last Vital Signs Temp 98.5 F 06/25/22 04:45 Pulse 87 06/25/22 09:00 Resp 20 H 06/25/22 09:00 BP 146/85 06/25/22 08:00 Pulse Ox 98 06/25/22 09:00 O2 Del Method 06/25/22 09:00 O2 Flow Rate 4 06/24/22 01:27 Discharge Plan Discharge Patient Disposition: Home Condition: Stable Prescriptions: New temazepam 7.5 mg capsule 7.5 mg PO BEDTIME Qty: 14 0RF levofloxacin 750 mg tablet 750 mg PO DAILY 7 Days Qty: 7 0RF Continued meloxicam 15 mg tablet 15 mg PO DAILY hydrocodone-acetaminophen 10-325 mg tablet 1 tab PO Q6H PRN (Reason: Pain) omeprazole 40 mg capsule,delayed release(DR/EC) 40 mg PO BID lisinopril 10 mg tablet 10 mg PO DAILY hydroxyzine HCl 25 mg tablet 25 mg PO TID PRN (Reason: Anxiety) gabapentin 100 mg capsule 100 mg PO TID PRN (Reason: Pain) albuterol sulfate 90 mcg/actuation HFA aerosol inhaler 2 puff INHALATION Q6H PRN (Reason: Shortness Of Breath) levocetirizine 5 mg tablet 5 mg PO DAILY PRN (Reason: Allergy Symptoms) lidocaine 5 % ointment 1 applic topical DAILY PRN (Reason: Pain) Jublia 10 % solution with applicator 1 applic TOPICAL DAILY Held hydroxychloroquine 200 mg tablet 400 mg PO DAILY Hold Instructions: Resume on 07/02/22. Discontinued temazepam 15 mg capsule 15 - 30 mg PO BEDTIME baclofen 10 mg tablet 10 - 20 mg PO TID Discharge Orders: Discharge Order (Routine); Ordered 06/25/22 Ordered By: Beto Byers Referrals: Heidi Sullivan, [Primary Care Provider] - 4-7 days Discharge Activity: Increase activity as tolerated Patient Instructions: Temazepam (By mouth), Urinary Tract Infection in Women (GEN), Bacterial Pneumonia (GEN), Encephalopathy (GEN) Activity Restrictions/Additional Instructions: Please avoid any further CBD use. Please stop baclofen. Please reduce temazepam dose to 7.5 mg as prescribed, work with your primary doctor to consider discontinuation of this medication. These medicines may contribute to confusion. He had quite severe confusion on presenting to the hospital which could be potentially risking injury or life-threatening if it recurs. Complete antibiotic course for urinary tract infection and pneumonia. Please follow-up with your primary doctor. Discharge Attestations Time Spent in Discharge Care*: greater than 30 min Quality Metrics Clinical Quality Measures [ No reported AMI, CVA or VTE this stay] Coding Level of Care Code Acute g [facility] note Diagnoses Altered mental status R41.82
--- NOTE | 2022-06-25 15:07 | PC.NURSE ---
Discharge instructions given to patient, IV removed. Patient asked about clothing and shoes, but only belonging listed is a black blanket. Patient noted to have come in naked and combative. Patient notified. She was given paper scrubs to go home in. Waiting on Medicare ride.
--- NOTE | 2022-06-25 17:50 | PC.NURSE ---
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 They have expedited the call due to the length of time.
--- NOTE | 2022-06-25 19:24 | PC.NURSE ---
Nic called for ride. [facility] called and notified.
--- NOTE | 2022-06-25 19:44 | PC.NURSE ---
Discharge Note Patient discharged to [employer] ride service via wheelchair. Discharge instructions reviewed with patient. All belongings returned with patient upon discharge.
[2022-06-27 15:58] LABS: Amphetamine negative; Barbiturates negative; Benzodiazepines negative; Cocaine Metabolites negative; Marijuana(Tetrahydrocannabino) negative; Opiates negative; PCP (Phencyclidine) negative
== END 2022-06-25 19:44 | disposition home or self-care (01) ==
LOC: ER 05:30 → ICU 08:06
PROVIDERS: Internal Medicine; Admitting Provider Family Medicine; Emergency Provider Emergency Medicine; PCP Family Medicine; Visit Provider Internal Medicine
DX: R41.82 Altered mental status, unspecified (principal); F17.210 Nicotine dependence, cigarettes, uncomplicated; Z85.3 Personal history of malignant neoplasm of breast; Z92.3 Personal history of irradiation
CPT/HCPCS: 36415; 36600; 70450; 71045; 80053; 80306; 80307; 81001; 82140; 82550; 82803; 83605; 83735; 83880; 84100; 84145; 84439; 84443; 84484; 85025; 85651; 86140; 87040; 93005; 96365; 96372; 96375; 96376; 99285; G0378; J0456; J0696; J1650; J2250; J2270; J2405; J3486; J3490; J7030; J7050; Q0144

== ENCOUNTER 2024-06-08 05:24 | Emergency (ER) | payer MEDICARE, MEDICAID, SELFPAY ==
[2024-06-08 05:24] VITALS: BP 127/73; PULSE 79; RESP 16; TEMP 36.6; O2SAT 97; BMI 25.0
--- NOTE | 2024-06-08 05:32 | XRR_ITS ---
PROCEDURE INFORMATION: Exam: XR Chest Exam date and time: 06/08/2024 5:38 AM Age: 68 years old Clinical indication: Patient HX: EMS arrival for AMS. Confusion and auditory hallucinations. TECHNIQUE: Imaging protocol: Radiologic exam of the chest. Views: 1 view. COMPARISON: CR XR chest 1V portable [id number] 06/24/2022 1:18 AM FINDINGS: Lungs: Unremarkable. No consolidation. Pleural spaces: Unremarkable. No pleural effusion. No pneumothorax. Heart/Mediastinum: Unremarkable. No cardiomegaly. Advanced diffuse vascular calcification noted. Bones/joints: DJD. XR/XR chest 1V portable [id number] IMPRESSION: No acute findings.
--- NOTE | 2024-06-08 05:32 | CTR_ITS ---
PROCEDURE INFORMATION: Exam: CT Head Without Contrast Exam date and time: 06/08/2024 5:50 AM Age: 68 years old Clinical indication: Altered mental status/memory loss; Patient HX: EMS arrival for AMS. Confusion and auditory hallucinations. TECHNIQUE: Imaging protocol: Computed tomography of the head without contrast. Radiation optimization: All CT scans at this facility use at least one of these dose optimization techniques: automated exposure control; mA and/or kV adjustment per patient size (includes targeted exams where dose is matched to clinical indication); or iterative reconstruction. COMPARISON: CT head wo con* [id number] 06/24/2022 1:12 AM RADIATION DOSE METRICS: Total DLP (mGy-cm): 1072.38 FINDINGS: Brain: No focal hemorrhage or midline shift is identified. The ventricles and parenchyma show mild atrophy and chronic bicerebral white matter ischemic change. Cerebral ventricles: No ventriculomegaly or evidence of hydrocephalus. Paranasal sinuses: The partially assessed sinuses are grossly clear. Mastoid air cells: Visualized mastoid air cells are well aerated. Bones: No displaced skull fracture is noted. Soft tissues: Unremarkable. Vasculature: Diffuse vascular calcifications are present. CT/CT head wo con* [id number] IMPRESSION: 1. No acute intracranial abnormality. 2. Mild age-related changes.
[2024-06-08 05:51] LABS: Basophils # 0.1 10^3/uL (0.0-0.1); Basophils % 0.8 %; Eosinophils # 0.2 10^3/uL (0.0-0.8); Eosinophils % 2.6 %; Hematocrit 40.5 % (36-47); Lymphocytes # 1.6 10^3/uL (0.8-4.8); Lymphocytes % 20.3 %; Mean Corpuscular HGB Conc 31.9 g/dL (30-55); Mean Corpuscular Hemoglobin 28.5 pg (27-33); Mean Corpuscular Volume 89.6 fl (85-98); Mean Platelet Volume 10.1 fL (7.4-10.4); Monocytes # 0.6 10^3/uL (0.2-0.9); Monocytes % 7.4 %; Neutrophils # 5.27 10^3/uL (1.8-7.7); Neutrophils % 68.6 %; Nucleated Red Blood Cells % 0 %; Platelet Count 382 10^3/cmm (157-399); Red Blood Count 4.52 10^6/uL (3.85-5.65); Red Cell Distribution Width 15.2 % (12.1-15.1); White Blood Count 7.68 10^3/uL (3.29-11.43)
[2024-06-08 06:14] LABS: Ammonia 17 umol/L (11-51)
--- NOTE | 2024-06-08 06:14 | ED.C_ITS ---
Documented by User: Yony Dietz, DO 06/13/24 18:15 HPI - Psych 2 General: Chief Complaint: Psychiatric Symptoms Stated Complaint: Hallucination Time Seen by Provider: 06/08/24 05:32 History of Present Illness: 68-year-old female who says she was very tired this morning. She woke quite early in the morning, and was hallucinating. She evidently was talking to her , thought she was in [facility], and was concerned that he needed medical care and was trying to get out of medical care. She was concerned enough that she dial 911. She lives alone. After EMS arrived, she realized that she was essentially dreaming, as she knows that her is , and she lives in the [facility]. She can now name the month, and year. She knows where she is. She remembers all of these events. She does take multiple medications. She says that this has happened to her before, but only a couple of times. She denies significant weakness, visual changes, numbness or tingling, trouble finding her words at this point, or any other concerning symptoms. She is not homicidal or suicidal. No further hallucinations on arrival. She does note that she has had some increased stress this past week, and has not slept well the past few nights. Related Data Home Medications Medication Instructions Recorded Confirmed albuterol sulfate 90 mcg/actuation 2 puff inhalation Q6H PRN 06/24/22 06/08/24 aerosol inhaler Shortness Of Breath efinaconazole 10 % topical 1 applic topical DAILY 06/24/22 06/08/24 solution with applicator (Jublia) gabapentin 100 mg capsule 100 mg PO TID PRN Pain 06/24/22 06/08/24 hydrocodone 10 mg-acetaminophen 1 tab PO Q6H PRN Pain 06/24/22 06/08/24 325 mg tablet hydroxychloroquine 200 mg tablet 400 mg PO DAILY 06/24/22 06/08/24 hydroxyzine HCl 25 mg tablet 25 mg PO TID PRN Anxiety 06/24/22 06/08/24 levocetirizine 5 mg tablet 5 mg PO DAILY PRN Allergy Symptoms 06/24/22 06/08/24 lidocaine 5 % topical ointment 1 applic topical DAILY PRN Pain 06/24/22 06/08/24 lisinopril 10 mg tablet 10 mg PO DAILY 06/24/22 06/08/24 meloxicam 15 mg tablet 15 mg PO DAILY 06/24/22 06/08/24 omeprazole 40 mg capsule,delayed 40 mg PO BID 06/24/22 06/08/24 release alprazolam 1 mg tablet 1 mg PO QPM PRN Insomnia 06/08/24 06/08/24 baclofen 20 mg tablet 20 mg PO TID 06/08/24 06/08/24 clotrimazole 1 % topical solution 1 applic topical BID 06/08/24 06/08/24 fluticasone propionate 50 2 spray intranasal DAILY 06/08/24 06/08/24 mcg/actuation nasal spray,suspension hydrochlorothiazide 25 mg tablet 25 mg PO DAILY 06/08/24 06/08/24 losartan 50 mg tablet 50 mg PO DAILY 06/08/24 06/08/24 Previous Rx's Medication Instructions Recorded temazepam 7.5 mg capsule 7.5 mg PO BEDTIME #14 caps 06/25/22 Allergies Allergy/AdvReac Type Severity Reaction Status Date / Time Penicillins Allergy Unknown Verified 06/24/22 04:46 Sulfa (Sulfonamide Allergy Unknown Verified 06/24/22 12:03 Antibiotics) PFSH ED 2 PFSH: Medical History Hypertension Smoker Surgical History History of tubal ligation Social History Smoking and tobacco/nicotine status: current every day tobacco/nicotine user Alcohol intake: never Substance/Drug Use: never Physical Exam 2 Const: COMMON NORMALS: no acute distress GENERAL APPEARANCE: cooperative; not ill appearing and not frail appearing ORIENTATION/CONSCIOUSNESS: Yes oriented to person, Yes oriented to place and Yes oriented to time HENMT: COMMON NORMALS: normocephalic, atraumatic and Normal external nose present HEAD & SCALP: normocephalic and atraumatic FACE & SINUS: normal facial exam and face symmetric NOSE: Normal external nose present Eye: COMMON NORMALS: Equal, round and reactive pupils present and EOMs intact bilaterally PUPIL: Yes Equal, round and reactive pupils present Neck/C-Spine: GENERAL: Yes trachea midline Chest: CHEST: Yes Symmetrical chest wall rise Resp: COMMON NORMALS: normal respiratory effort, No retractions, No use of accessory muscles and clear to auscultation bilaterally AUSCULTATION: clear to auscultation bilaterally Cardio: COMMON NORMALS: regular rate and regular rhythm RATE: regular rate RHYTHM: regular rhythm GI: COMMON NORMALS: Normal to inspection, nondistended, normoactive bowel sounds present Extremity: COMMON NORMALS: no pedal edema Neuro: KRISTA COMA SCALE: document GCS findings Krista coma scale eye opening: Spontaneous Krista coma scale verbal response: Orientated Krista coma scale motor response: Obey commands [place] coma scale total score: 15 COMMON NORMALS: CN's II-XII intact bilaterally SENSORIUM/ORIENTATION: Yes oriented to person, Yes oriented to place and Yes oriented to time CRANIAL NERVES: Yes CN normal except as noted COORDINATION/BALANCE: [id number] test normal SPEECH: speech normal SENSORY EXAM: Yes extremities (intact) MOTOR EXAM: P ronator motor function not present and Normal motor muscle tone present throughout COORDINATION: [id number] test normal Psych: COMMON NORMALS: speech normal SPEECH: Yes normal speech Skin: COMMON NORMALS: no rashes or lesions noted GENERAL SKIN EXAM: no rashes or lesions noted Course 2 Vital Signs: Vital signs: Vital Signs Temperature 97.8 F 06/09/24 09:39 Pulse Rate 98 06/09/24 09:39 Respiratory Rate 16 06/09/24 09:39 Blood Pressure 134/77 06/09/24 09:39 Pulse Oximetry 97 06/09/24 09:39 Oxygen Delivery Me thod Room Air 06/08/24 20:53 MDM - Psych Medical Decision Making The patient now realizes she was dreaming. She is not actively hallucinating at this point. She remembers the events of this morning. She is afebrile. Her vitals are stable. CBC is normal. Other laboratories pending. Pending normal laboratory, and unremarkable CT head and chest x-ray, she will be allowed discharge. Head CT and chest x-ray are negative. Again other laboratories pending. Lab Data 06/08/24 05:45 06/09/24 06:30 Radiology Impressions Chest X-Ray 06/08/24 05:32 IMPRESSION: No acute findings. Head CT 06/08/24 05:32 IMPRESSION: 1. No acute intracranial abnormality. 2. Mild age-related changes. Laboratory Results WBC 7.68 10^3/uL (3.29-11.43) 06/08/24 05:45 RBC 4.52 10^6/uL (3.85-5.65) 06/08/24 05:45 Hgb 12.90 g/dL (11.27-16.99) 06/08/24 05:45 Hct 40.5 % (36-47) 06/08/24 05:45 MCV 89.6 fl (85-98) 06/08/24 05:45 MCH 28.5 pg (27-33) 06/08/24 05:45 MCHC 31.9 g/dL (30-55) 06/08/24 05:45 RDW 15.2 % (12.1-15.1) H 06/08/24 05:45 Plt Count 382 10^3/cmm (157-399) 06/08/24 05:45 MPV 10.1 fL (7.4-10.4) 06/08/24 05:45 Neut % (Auto) 68.6 % 06/08/24 05:45 Lymph % (Auto) 20.3 % 06/08/24 05:45 [place] % (Auto) 7.4 % 06/08/24 05:45 Eos % (Auto) 2.6 % 06/08/24 05:45 Baso % (Auto) 0.8 % 06/08/24 05:45 Neut # (Auto) 5.27 10^3/uL (1.8-7.7) 06/08/24 05:45 Lymph # (Auto) 1.6 10^3/uL (0.8-4.8) 06/08/24 05:45 [place] # (Auto) 0.6 10^3/uL (0.2-0.9) 06/08/24 05:45 Eos # (Auto) 0.2 10^3/uL (0.0-0.8) 06/08/24 05:45 Baso # (Auto) 0.1 10^3/uL (0.0-0.1) 06/08/24 05:45 Nucleated RBC % (auto) 0 % 06/08/24 05:45 Nucleated RBCs # 0.0 /100WBC 06/08/24 05:45 Specimen Type Arterial 06/08/24 06:33 Sample Site Radial, right 06/08/24 06:33 ABG pH 7.37 (7.35-7.45) 06/08/24 06:33 ABG pCO2 33.9 mmHg (35-45) L 06/08/24 06:33 ABG pO2 90.7 mmHg (80.0-100.0) 06/08/24 06:33 ABG PO2/FiO2 Ratio 431 06/08/24 06:33 ABG HCO3 19.7 mmol/L (22-26) L 06/08/24 06:33 ABG Base Excess -4.8 mmol/L (-2.0-2.0) L 06/08/24 06:33 Hermann Test Pos 06/08/24 06:33 Hematocrit 37.9 % (37-47) 06/08/24 06:33 O2 Delivery Device None 06/08/24 06:33 FiO2 21.0 % 06/08/24 06:33 Recovery Analyst ID Willy 06/08/24 06:33 Sodium 133 mmol/L (136-145) L 06/09/24 06:30 Potassium 3.5 mmol/L (3.5-5.1) 06/09/24 06:30 Chloride 99 mmol/L (98-107) 06/09/24 06:30 Carbon Dioxide 18 mmol/L (22-29) L 06/09/24 06:30 Anion Gap 19.5 (5-19) H 06/09/24 06:30 BUN 10 mg/dL (8-23) 06/09/24 06:30 Creatinine 0.6 mg/dL (0.5-0.9) 06/09/24 06:30 GFR Calculation 99.4 mL/min (90-130) 06/09/24 06:30 Glucose 135 mg/dL (65-115) H 06/09/24 06:30 Calculated Osmolality 277 mOsm/kg (285-295) L 06/09/24 06:30 Calcium 8.9 mg/dL (8.5-10.5) 06/09/24 06:30 Total Bilirubin 0.2 mg/dL (0.15-1.2) 06/08/24 05:45 AST 18 U/L (0-32) 06/08/24 05:45 ALT 11 U/L (0-33) 06/08/24 05:45 Alkaline Phosphatase 83 U/L (35-105) 06/08/24 05:45 Ammonia 17 umol/L (11-51) 06/08/24 05:45 Total Protein 8.1 g/dL (6.6-8.7) 06/08/24 05:45 Albumin 4.5 g/dL (3.5-5.2) 06/08/24 05:45 Globulin 3.6 g/dL (1.3-4.6) 06/08/24 05:45 TSH 0.37 uIU/mL (0.27-4.20) 06/08/24 05:45 Urine Color Yellow (Yellow) 06/08/24 06:02 Urine Appearance Clear (CLEAR) 06/08/24 06:02 Urine pH 5.0 (5-7) 06/08/24 06:02 Ur Specific [place] 1.025 (1.005-1.030) 06/08/24 06:02 Urine Protein Negative (Negative) 06/08/24 06:02 Urine Glucose (UA) Negative (Normal) 06/08/24 06:02 Urine Ketones Negative (Negative) 06/08/24 06:02 Urine Blood Negative (Negative) 06/08/24 06:02 Urine Nitrate Negative (Negative) 06/08/24 06:02 Urine Bilirubin Negative (Negative) 06/08/24 06:02 Urine Urobilinogen 1.0 mg/dL (Negative) 06/08/24 06:02 Ur Leukocyte Esterase 1+ (Negative) A 06/08/24 06:02 Urine RBC 0-2 /hpf (0-2) 06/08/24 06:02 Urine WBC 6-10 /hpf (0-5) 06/08/24 06:02 Ur Squamous Epith Cells 0-5 /hpf (0-5) 06/08/24 06:02 Amorphous Sediment Not Reportable 06/08/24 06:02 Urine Bacteria None seen /hpf (NONE) 06/08/24 06:02 Hyaline Casts 31.43 /lpf 06/08/24 06:02 Salicylates 0.4 mg/dL (3-10) L 06/09/24 06:30 Urine Opiates Screen Positive ng/mL (Negative) H 06/08/24 06:02 Acetaminophen 12.8 ug/mL (10-30) 06/08/24 05:45 Ur Barbiturates Screen Negative ng/mL (Negative) 06/08/24 06:02 Ur Phencyclidine Scrn Negative ng/mL (Negative) 06/08/24 06:02 Ur Amphetamines Screen Negative ng/mL (Negative) 06/08/24 06:02 U Benzodiazepines Scrn Positive ng/mL (Negative) H 06/08/24 06:02 Urine Cocaine Screen Negative ng/mL (Negative) 06/08/24 06:02 U Marijuana (THC) Screen Negative ng/mL (Negative) 06/08/24 06:02 Ethyl Alcohol < 10 mg/dL (0-10) 06/08/24 05:45 SARS-CoV-2 Ag (Rapid) negative (Negative) 06/08/24 16:18 Discharge Plan Discharge Patient Disposition: Xfer Short-Term Hosp Clinical Impression: Acute delirium, Hallucinations, Agitation Condition: Stable Referrals: Heidi Sullivan DO [Primary Care Provider] - 1-3 days Patient Instructions: Acute Delirium (ED) Activity Restrictions/Additional Instructions: Monitor for fever, worsening mental status changes, weakness, visual changes, etc. Return for any of these. Your doctor later today, they will want to see you this week in follow-up. Coding Level of Care Code ED Park Interpretive Specialist for Chg Fwd Documented by User: Torres Clinton DO 06/09/24 17:40 HPI - Psych 2 General: Chief Complaint: Psychiatric Symptoms Stated Complaint: Hallucination Time Seen by Provider: 06/08/24 05:32 Related Data Home Medications Medication Instructions Recorded Confirmed albuterol sulfate 90 mcg/actuation 2 puff inhalation Q6H PRN 06/24/22 06/08/24 aerosol inhaler Shortness Of Breath efinaconazole 10 % topical 1 applic topical DAILY 06/24/22 06/08/24 solution with applicator (Jublia) gabapentin 100 mg capsule 100 mg PO TID PRN Pain 06/24/22 06/08/24 hydrocodone 10 mg-acetaminophen 1 tab PO Q6H PRN Pain 06/24/22 06/08/24 325 mg tablet hydroxychloroquine 200 mg tablet 400 mg PO DAILY 06/24/22 06/08/24 hydroxyzine HCl 25 mg tablet 25 mg PO TID PRN Anxiety 06/24/22 06/08/24 levocetirizine 5 mg tablet 5 mg PO DAILY PRN Allergy Symptoms 06/24/22 06/08/24 lidocaine 5 % topical ointment 1 applic topical DAILY PRN Pain 06/24/22 06/08/24 lisinopril 10 mg tablet 10 mg PO DAILY 06/24/22 06/08/24 meloxicam 15 mg tablet 15 mg PO DAILY 06/24/22 06/08/24 omeprazole 40 mg capsule,delayed 40 mg PO BID 06/24/22 06/08/24 release alprazolam 1 mg tablet 1 mg PO QPM PRN Insomnia 06/08/24 06/08/24 baclofen 20 mg tablet 20 mg PO TID 06/08/24 06/08/24 clotrimazole 1 % topical solution 1 applic topical BID 06/08/24 06/08/24 fluticasone propionate 50 2 spray intranasal DAILY 06/08/24 06/08/24 mcg/actuation nasal spray,suspension hydrochlorothiazide 25 mg tablet 25 mg PO DAILY 06/08/24 06/08/24 losartan 50 mg tablet 50 mg PO DAILY 06/08/24 06/08/24 Previous Rx's Medication Instructions Recorded temazepam 7.5 mg capsule 7.5 mg PO BEDTIME #14 caps 06/25/22 Allergies Allergy/AdvReac Type Severity Reaction Status Date / Time Penicillins Allergy Unknown Verified 06/24/22 04:46 Sulfa (Sulfonamide Allergy Unknown Verified 06/24/22 12:03 Antibiotics) PFSH ED 2 PFSH: Medical History Hypertension Smoker Surgical History History of tubal ligation Social History Smoking and tobacco/nicotine status: current every day tobacco/nicotine user Alcohol intake: never Substance/Drug Use: never Physical Exam 2 Neuro: KRISTA COMA SCALE: document GCS findings Krista coma scale total score: 15 Course 2 Vital Signs: Vital signs: Vital Signs Temperature 97.8 F 06/09/24 09:39 Pulse Rate 98 06/09/24 09:39 Respiratory Rate 16 06/09/24 09:39 Blood Pressure 134/77 06/09/24 09:39 Pulse Oximetry 97 06/09/24 09:39 Oxygen Delivery Me thod Room Air 06/08/24 20:53 [facility] - Psych Medical Decision Making The patient now realizes she was dreaming. She is not actively hallucinating at this point. She remembers the events of this morning. She is afebrile. Her vitals are stable. CBC is normal. Other laboratories pending. Pending normal laboratory, and unremarkable CT head and chest x-ray, she will be allowed discharge. Head CT and chest x-ray are negative. Again other laboratories pending. 06/08/2024 Care assumed at change of shift. Patient has mildly elevated salicylate level and anion gap given IV fluids labs retested salicylate level resolving anion gap closed. Dr. Dietz's notes reviewed. 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 She still has multiple explanations of her ranging from that he is he is in [facility] in [place] or he is going out to get her ice cream. She is hallucinating seeing cats in her room. We made several attempts to try to find outside history from prior to arrival here she gave his phone numbers from her cell phone none of which were associated with anyone who knew her or family members. Despite our best efforts were not able to find anyone who knows her was related to her can contribute any history or help with establish a baseline. Reviewed with on-call psychiatry they recommend in any case like this they would admit the patient for further evaluation. Staff is currently looking for placement. Patient is placed on a 96-hour hold. 06/09/[address] Colindres this morning. Continuing to look for placement. Will consult psychiatry [facility] has excepted patient. Were making arrangements for transfer. Will cancel psychiatry consult. Consult was for management while we continued to look for placement. Lab Data 06/08/24 05:45 06/09/24 06:30 Radiology Impressions Chest X-Ray 06/08/24 05:32 IMPRESSION: No acute findings. Head CT 06/08/24 05:32 IMPRESSION: 1. No acute intracranial abnormality. 2. Mild age-related changes. Laboratory Results WBC 7.68 10^3/uL (3.29-11.43) 06/08/24 05:45 RBC 4.52 10^6/uL (3.85-5.65) 06/08/24 05:45 Hgb 12.90 g/dL (11.27-16.99) 06/08/24 05:45 Hct 40.5 % (36-47) 06/08/24 05:45 MCV 89.6 fl (85-98) 06/08/24 05:45 MCH 28.5 pg (27-33) 06/08/24 05:45 MCHC 31.9 g/dL (30-55) 06/08/24 05:45 RDW 15.2 % (12.1-15.1) H 06/08/24 05:45 Plt Count 382 10^3/cmm (157-399) 06/08/24 05:45 MPV 10.1 fL (7.4-10.4) 06/08/24 05:45 Neut % (Auto) 68.6 % 06/08/24 05:45 Lymph % (Auto) 20.3 % 06/08/24 05:45 [place] % (Auto) 7.4 % 06/08/24 05:45 Eos % (Auto) 2.6 % 06/08/24 05:45 Baso % (Auto) 0.8 % 06/08/24 05:45 Neut # (Auto) 5.27 10^3/uL (1.8-7.7) 06/08/24 05:45 Lymph # (Auto) 1.6 10^3/uL (0.8-4.8) 06/08/24 05:45 [place] # (Auto) 0.6 10^3/uL (0.2-0.9) 06/08/24 05:45 Eos # (Auto) 0.2 10^3/uL (0.0-0.8) 06/08/24 05:45 Baso # (Auto) 0.1 10^3/uL (0.0-0.1) 06/08/24 05:45 Nucleated RBC % (auto) 0 % 06/08/24 05:45 Nucleated RBCs # 0.0 /100WBC 06/08/24 05:45 Specimen Type Arterial 06/08/24 06:33 Sample Site Radial, right 06/08/24 06:33 ABG pH 7.37 (7.35-7.45) 06/08/24 06:33 ABG pCO2 33.9 mmHg (35-45) L 06/08/24 06:33 ABG pO2 90.7 mmHg (80.0-100.0) 06/08/24 06:33 ABG PO2/FiO2 Ratio 431 06/08/24 06:33 ABG HCO3 19.7 mmol/L (22-26) L 06/08/24 06:33 ABG Base Excess -4.8 mmol/L (-2.0-2.0) L 06/08/24 06:33 Hermann Test Pos 06/08/24 06:33 Hematocrit 37.9 % (37-47) 06/08/24 06:33 O2 Delivery Device None 06/08/24 06:33 FiO2 21.0 % 06/08/24 06:33 Recovery Analyst ID Willy 06/08/24 06:33 Sodium 133 mmol/L (136-145) L 06/09/24 06:30 Potassium 3.5 mmol/L (3.5-5.1) 06/09/24 06:30 Chloride 99 mmol/L (98-107) 06/09/24 06:30 Carbon Dioxide 18 mmol/L (22-29) L 06/09/24 06:30 Anion Gap 19.5 (5-19) H 06/09/24 06:30 BUN 10 mg/dL (8-23) 06/09/24 06:30 Creatinine 0.6 mg/dL (0.5-0.9) 06/09/24 06:30 GFR Calculation 99.4 mL/min (90-130) 06/09/24 06:30 Glucose 135 mg/dL (65-115) H 06/09/24 06:30 Calculated Osmolality 277 mOsm/kg (285-295) L 06/09/24 06:30 Calcium 8.9 mg/dL (8.5-10.5) 06/09/24 06:30 Total Bilirubin 0.2 mg/dL (0.15-1.2) 06/08/24 05:45 AST 18 U/L (0-32) 06/08/24 05:45 ALT 11 U/L (0-33) 06/08/24 05:45 Alkaline Phosphatase 83 U/L (35-105) 06/08/24 05:45 Ammonia 17 umol/L (11-51) 06/08/24 05:45 Total Protein 8.1 g/dL (6.6-8.7) 06/08/24 05:45 Albumin 4.5 g/dL (3.5-5.2) 06/08/24 05:45 Globulin 3.6 g/dL (1.3-4.6) 06/08/24 05:45 TSH 0.37 uIU/mL (0.27-4.20) 06/08/24 05:45 Urine Color Yellow (Yellow) 06/08/24 06:02 Urine Appearance Clear (CLEAR) 06/08/24 06:02 Urine pH 5.0 (5-7) 06/08/24 06:02 Ur Specific [place] 1.025 (1.005-1.030) 06/08/24 06:02 Urine Protein Negative (Negative) 06/08/24 06:02 Urine Glucose (UA) Negative (Normal) 06/08/24 06:02 Urine Ketones Negative (Negative) 06/08/24 06:02 Urine Blood Negative (Negative) 06/08/24 06:02 Urine Nitrate Negative (Negative) 06/08/24 06:02 Urine Bilirubin Negative (Negative) 06/08/24 06:02 Urine Urobilinogen 1.0 mg/dL (Negative) 06/08/24 06:02 Ur Leukocyte Esterase 1+ (Negative) A 06/08/24 06:02 Urine RBC 0-2 /hpf (0-2) 06/08/24 06:02 Urine WBC 6-10 /hpf (0-5) 06/08/24 06:02 Ur Squamous Epith Cells 0-5 /hpf (0-5) 06/08/24 06:02 Amorphous Sediment Not Reportable 06/08/24 06:02 Urine Bacteria None seen /hpf (NONE) 06/08/24 06:02 Hyaline Casts 31.43 /lpf 06/08/24 06:02 Salicylates 0.4 mg/dL (3-10) L 06/09/24 06:30 Urine Opiates Screen Positive ng/mL (Negative) H 06/08/24 06:02 Acetaminophen 12.8 ug/mL (10-30) 06/08/24 05:45 Ur Barbiturates Screen Negative ng/mL (Negative) 06/08/24 06:02 Ur Phencyclidine Scrn Negative ng/mL (Negative) 06/08/24 06:02 Ur Amphetamines Screen Negative ng/mL (Negative) 06/08/24 06:02 U Benzodiazepines Scrn Positive ng/mL (Negative) H 06/08/24 06:02 Urine Cocaine Screen Negative ng/mL (Negative) 06/08/24 06:02 U Marijuana (THC) Screen Negative ng/mL (Negative) 06/08/24 06:02 Ethyl Alcohol < 10 mg/dL (0-10) 06/08/24 05:45 SARS-CoV-2 Ag (Rapid) negative (Negative) 06/08/24 16:18 All radiology interpretation(s) finalized by discharge Discharge Plan Discharge Patient Disposition: Xfer Short-Term Hosp Clinical Impression: Acute delirium, Hallucinations, Agitation Condition: Stable Referrals: Heidi Sullivan DO [Primary Care Provider] - 1-3 days Patient Instructions: Acute Delirium (ED) Activity Restrictions/Additional Instructions: Monitor for fever, worsening mental status changes, weakness, visual changes, etc. Return for any of these. Your doctor later today, they will want to see you this week in follow-up. Coding Level of Care Code ED Park Interpretive Specialist for Jostin Cabrera
[2024-06-08 06:18] LABS: Charge for UA Resulting for Rev
[2024-06-08 06:22] LABS: Bilirubin Urine Negative (Negative); Blood Urine Negative (Negative); Glucose Urine UA Negative (Normal); Ketones Urine Negative (Negative); Leukocyte Esterase Urine 1+ (Negative); Nitrate Urine Negative (Negative); Protein Urine Negative (Negative); Specific Gravity, Urine 1.025 (1.005-1.030); Urine Appearance Clear (CLEAR); Urine Color Yellow (Yellow)
[2024-06-08 06:22] LABS: Acetaminophen 12.8 ug/mL (10-30); Alanine Aminotransferase 11 U/L (0-33); Albumin Level 4.5 g/dL (3.5-5.2); Alkaline Phosphatase 83 U/L (35-105); Anion Gap 20.2 (5-19); Aspartate Amino Transferase 18 U/L (0-32); Blood Urea Nitrogen 19 mg/dL (8-23); Calcium 9.1 mg/dL (8.5-10.5); Carbon Dioxide 19 mmol/L (22-29); Chloride 97 mmol/L (98-107); Creatinine Clr Calc Pharmacy 50.9923; Globulin 3.6 g/dL (1.3-4.6); Glomerular Filtration Rate 49.4 mL/min (90-130); Glucose 119 mg/dL (65-115); Osmolality Calculated 279 mOsm/kg (285-295); Potassium 3.2 mmol/L (3.5-5.1); Salicylate 23.2 mg/dL (3-10); Sodium 133 mmol/L (136-145); Thyroid Stimulating Hormone 0.37 uIU/mL (0.27-4.20); Total Bilirubin 0.2 mg/dL (0.15-1.2); Total Protein 8.1 g/dL (6.6-8.7)
[2024-06-08 06:26] LABS: Alcohol Level < 10 mg/dL (0-10)
[2024-06-08 06:27] LABS: Bacteria Urine None Seen /hpf; Hyaline Casts Urine 31.43 /lpf; RBC Urine 0-2 /hpf (0-2); Squamous Epithelial Cell Urine 0-5 /hpf (0-5); Universal Test for UA Present (0)
[2024-06-08 06:28] LABS: Amphetamines Screen Urine Negative (Negative); Barbiturates Screen Urine Negative (Negative); Benzodiazepines Screen Urine Positive (Negative); Cocaine Screen Urine Negative (Negative); Opiate Screen Urine Positive (Negative); PCP Screen Urine Negative (Negative); THC Screen Urine Negative (Negative)
[2024-06-08 06:46] LABS: ABG PCO2 33.9 mmHg (35-45); ABG PH Result 7.37 (7.35-7.45); Arterial Blood Gas Hematocrit 37.9 % (37-47); Base Excess ABG -4.8 mmol/L (-2.0-2.0); Blood Gas Allen Test Pos; Blood Gas Operator Identificat JB; Blood Gas Sample Site Radial, right; Blood Gas Sample Type Arterial; HCO3 ABG 19.7 mmol/L (22-26); PO2 ABG 90.7 mmHg (80.0-100.0); PO2 FiO2 Ratio Arterial Blood 431
[2024-06-08 06:48] VITALS: BP 127/73
[2024-06-08 06:50] LABS: Add Urine Culture? No
[2024-06-08] MEDS: cefTRIAXone 1,000 mg SDV 1000 MG IVP (08:32)
[2024-06-08] MEDS: sodium chloride 0.9% 1,000 ML 999 ML IV (08:36)
--- NOTE | 2024-06-08 09:32 | PC.PHAR ---
PT CONFUSED AND UNABLE TO VERIFY MEDICATIONS. MED REC COMPLETED VIA MED LIST WITH LAST FILL DATES AND DAYS SUPPLY.
[2024-06-08 11:28] LABS: Anion Gap 18.4 (5-19); Blood Urea Nitrogen 15 mg/dL (8-23); Calcium 8.5 mg/dL (8.5-10.5); Carbon Dioxide 18 mmol/L (22-29); Chloride 100 mmol/L (98-107); Creatinine Clr Calc Pharmacy 70.1144; Glomerular Filtration Rate 71.3 mL/min (90-130); Glucose 106 mg/dL (65-115); Osmolality Calculated 277 mOsm/kg (285-295); Potassium 3.4 mmol/L (3.5-5.1); Salicylate 15.6 mg/dL (3-10); Sodium 133 mmol/L (136-145)
[2024-06-08 12:55] VITALS: BP 129/72; PULSE 80; RESP 16; O2SAT 99
--- NOTE | 2024-06-08 14:42 | ECG_ITS ---
[facility] Test Date: 2024-06-08 Pat Name: Martina Alberts Department: Room: Gender: Female Screen Room Operator: : 1955 Requested By: Torres Arevalo Order Number: [id number] Beverly MD: Jose Melgar M.D. Measurements Intervals Drake Rate: 82 P: 71 KS: 160 QRS: 61 QRSD: 94 T: 44 QT: 394 QTc: 461 Interpretive Statements SINUS RHYTHM Compared to ECG 06/24/2022 08:41:28 No significant changes Electronically Signed On 06-09-2024 7:38:24 CDT by Jose Melgar M.D. [id number]
[2024-06-08 16:59] LABS: SARS Covid-2 Antigen negative (Negative)
[2024-06-08] MEDS: LORazepam 1 mg Tablet PO (19:01)
[2024-06-08 20:00] VITALS: PULSE 69; RESP 16; O2SAT 99
[2024-06-08] MEDS: haloperidol inj 5 mg/mL INJ 1 mL IVP (20:26)
--- NOTE | 2024-06-08 20:46 | PC.NURSE ---
RN assumed care for pt at 1900
[2024-06-08 20:53] VITALS: PULSE 72; RESP 18; O2SAT 98
[2024-06-08] MEDS: LORazepam 2 mg/mL INJ 1 mL 1 MG IVP (21:12)
--- NOTE | 2024-06-08 21:32 | ED.C_ITS ---
HPI - Psych 2 General: Chief Complaint: Psychiatric Symptoms Stated Complaint: Hallucination Time Seen by Provider: 06/08/24 05:32 History of Present Illness: Patient has been agitated and hallucinating all day today. There was plan to discharge but her psychiatric status change so she has been kept in the emergency room. Now she is planned transfer for psychiatric treatment. Related Data Home Medications Medication Instructions Recorded Confirmed albuterol sulfate 90 mcg/actuation 2 puff inhalation Q6H PRN 06/24/22 06/08/24 aerosol inhaler Shortness Of Breath efinaconazole 10 % topical 1 applic topical DAILY 06/24/22 06/08/24 solution with applicator (Jublia) gabapentin 100 mg capsule 100 mg PO TID PRN Pain 06/24/22 06/08/24 hydrocodone 10 mg-acetaminophen 1 tab PO Q6H PRN Pain 06/24/22 06/08/24 325 mg tablet hydroxychloroquine 200 mg tablet 400 mg PO DAILY 06/24/22 06/08/24 hydroxyzine HCl 25 mg tablet 25 mg PO TID PRN Anxiety 06/24/22 06/08/24 levocetirizine 5 mg tablet 5 mg PO DAILY PRN Allergy Symptoms 06/24/22 06/08/24 lidocaine 5 % topical ointment 1 applic topical DAILY PRN Pain 06/24/22 06/08/24 lisinopril 10 mg tablet 10 mg PO DAILY 06/24/22 06/08/24 meloxicam 15 mg tablet 15 mg PO DAILY 06/24/22 06/08/24 omeprazole 40 mg capsule,delayed 40 mg PO BID 06/24/22 06/08/24 release alprazolam 1 mg tablet 1 mg PO QPM PRN Insomnia 06/08/24 06/08/24 baclofen 20 mg tablet 20 mg PO TID 06/08/24 06/08/24 clotrimazole 1 % topical solution 1 applic topical BID 06/08/24 06/08/24 fluticasone propionate 50 2 spray intranasal DAILY 06/08/24 06/08/24 mcg/actuation nasal spray,suspension hydrochlorothiazide 25 mg tablet 25 mg PO DAILY 06/08/24 06/08/24 losartan 50 mg tablet 50 mg PO DAILY 06/08/24 06/08/24 Previous Rx's Medication Instructions Recorded temazepam 7.5 mg capsule 7.5 mg PO BEDTIME #14 caps 06/25/22 Allergies Allergy/AdvReac Type Severity Reaction Status Date / Time Penicillins Allergy Unknown Verified 06/24/22 04:46 Sulfa (Sulfonamide Allergy Unknown Verified 06/24/22 12:03 Antibiotics) Review of Systems 2 General: Reports: ROS unobtainable due to mental status PFSH ED 2 PFSH: Medical History Hypertension Smoker Surgical History History of tubal ligation Social History Smoking and tobacco/nicotine status: current every day tobacco/nicotine user Alcohol intake: never Substance/Drug Use: never Physical Exam 2 Narrative: EXAM NARRATIVE: General: Alert, no acute distress. Skin: Warm, dry. Head: Normocephalic, atraumatic. Neck: Supple, trachea midline. Eye: Extraocular movements are intact. Ears, nose, mouth and throat: mucosa moist. Cardiovascular: Regular, Normal peripheral perfusion. Respiratory: Lungs are clear to auscultation, respirations are non-labored, breath sounds are equal, Symmetrical chest wall expansion. Gastrointestinal: Soft, Nontender, Non distended, Normal bowel sounds. Musculoskeletal: Normal ROM, no deformity. Neurological: Alert but not oriented, No focal neurological deficit observed. Psychiatric: Patient seems confused/demented. Agitated at times. Course 2 Vital Signs: Vital signs: Vital Signs Temperature 97.8 F 06/08/24 05:24 Pulse Rate 98 06/09/24 06:13 Respiratory Rate 16 06/09/24 06:13 Blood Pressure 134/77 06/09/24 06:13 Pulse Oximetry 97 06/09/24 06:13 Oxygen Delivery Ny thod Room Air 06/08/24 20:53 [facility] - Psych Medical Decision Making [facility]. Since shift change I have given Haldol and Ativan because she is been agitated and trying to get out of bed and wandering and having hallucinations. Plan is to transfer to [facility] for continued treatment and evaluation. Lab Data 06/08/24 05:45 06/08/24 10:46 Radiology Impressions Chest X-Ray 06/08/24 05:32 IMPRESSION: No acute findings. Head CT 06/08/24 05:32 IMPRESSION: 1. No acute intracranial abnormality. 2. Mild age-related changes. Laboratory Results WBC 7.68 10^3/uL (3.29-11.43) 06/08/24 05:45 RBC 4.52 10^6/uL (3.85-5.65) 06/08/24 05:45 Hgb 12.90 g/dL (11.27-16.99) 06/08/24 05:45 Hct 40.5 % (36-47) 06/08/24 05:45 MCV 89.6 fl (85-98) 06/08/24 05:45 MCH 28.5 pg (27-33) 06/08/24 05:45 MCHC 31.9 g/dL (30-55) 06/08/24 05:45 RDW 15.2 % (12.1-15.1) H 06/08/24 05:45 Plt Count 382 10^3/cmm (157-399) 06/08/24 05:45 MPV 10.1 fL (7.4-10.4) 06/08/24 05:45 Neut % (Auto) 68.6 % 06/08/24 05:45 Lymph % (Auto) 20.3 % 06/08/24 05:45 [place] % (Auto) 7.4 % 06/08/24 05:45 Eos % (Auto) 2.6 % 06/08/24 05:45 Baso % (Auto) 0.8 % 06/08/24 05:45 Neut # (Auto) 5.27 10^3/uL (1.8-7.7) 06/08/24 05:45 Lymph # (Auto) 1.6 10^3/uL (0.8-4.8) 06/08/24 05:45 [place] # (Auto) 0.6 10^3/uL (0.2-0.9) 06/08/24 05:45 Eos # (Auto) 0.2 10^3/uL (0.0-0.8) 06/08/24 05:45 Baso # (Auto) 0.1 10^3/uL (0.0-0.1) 06/08/24 05:45 Nucleated RBC % (auto) 0 % 06/08/24 05:45 Nucleated RBCs # 0.0 /100WBC 06/08/24 05:45 Specimen Type Arterial 06/08/24 06:33 Sample Site Radial, right 06/08/24 06:33 ABG pH 7.37 (7.35-7.45) 06/08/24 06:33 ABG pCO2 33.9 mmHg (35-45) L 06/08/24 06:33 ABG pO2 90.7 mmHg (80.0-100.0) 06/08/24 06:33 ABG PO2/FiO2 Ratio 431 06/08/24 06:33 ABG HCO3 19.7 mmol/L (22-26) L 06/08/24 06:33 ABG Base Excess -4.8 mmol/L (-2.0-2.0) L 06/08/24 06:33 Hermann Test Pos 06/08/24 06:33 Hematocrit 37.9 % (37-47) 06/08/24 06:33 O2 Delivery Device None 06/08/24 06:33 FiO2 21.0 % 06/08/24 06:33 Dry Paste Supervisor ID Willy 06/08/24 06:33 Sodium 133 mmol/L (136-145) L 06/08/24 10:46 Potassium 3.4 mmol/L (3.5-5.1) L 06/08/24 10:46 Chloride 100 mmol/L (98-107) 06/08/24 10:46 Carbon Dioxide 18 mmol/L (22-29) L 06/08/24 10:46 Anion Gap 18.4 (5-19) 06/08/24 10:46 BUN 15 mg/dL (8-23) 06/08/24 10:46 Creatinine 0.8 mg/dL (0.5-0.9) 06/08/24 10:46 GFR Calculation 71.3 mL/min (90-130) L 06/08/24 10:46 Glucose 106 mg/dL (65-115) 06/08/24 10:46 Calculated Osmolality 277 mOsm/kg (285-295) L 06/08/24 10:46 Calcium 8.5 mg/dL (8.5-10.5) 06/08/24 10:46 Total Bilirubin 0.2 mg/dL (0.15-1.2) 06/08/24 05:45 AST 18 U/L (0-32) 06/08/24 05:45 ALT 11 U/L (0-33) 06/08/24 05:45 Alkaline Phosphatase 83 U/L (35-105) 06/08/24 05:45 Ammonia 17 umol/L (11-51) 06/08/24 05:45 Total Protein 8.1 g/dL (6.6-8.7) 06/08/24 05:45 Albumin 4.5 g/dL (3.5-5.2) 06/08/24 05:45 Globulin 3.6 g/dL (1.3-4.6) 06/08/24 05:45 TSH 0.37 uIU/mL (0.27-4.20) 06/08/24 05:45 Urine Color Yellow (Yellow) 06/08/24 06:02 Urine Appearance Clear (CLEAR) 06/08/24 06:02 Urine pH 5.0 (5-7) 06/08/24 06:02 Ur Specific [place] 1.025 (1.005-1.030) 06/08/24 06:02 Urine Protein Negative (Negative) 06/08/24 06:02 Urine Glucose (UA) Negative (Normal) 06/08/24 06:02 Urine Ketones Negative (Negative) 06/08/24 06:02 Urine Blood Negative (Negative) 06/08/24 06:02 Urine Nitrate Negative (Negative) 06/08/24 06:02 Urine Bilirubin Negative (Negative) 06/08/24 06:02 Urine Urobilinogen 1.0 mg/dL (Negative) 06/08/24 06:02 Ur Leukocyte Esterase 1+ (Negative) A 06/08/24 06:02 Urine RBC 0-2 /hpf (0-2) 06/08/24 06:02 Urine WBC 6-10 /hpf (0-5) 06/08/24 06:02 Ur Squamous Epith Cells 0-5 /hpf (0-5) 06/08/24 06:02 Amorphous Sediment Not Reportable 06/08/24 06:02 Urine Bacteria None seen /hpf (NONE) 06/08/24 06:02 Hyaline Casts 31.43 /lpf 06/08/24 06:02 Salicylates 15.6 mg/dL (3-10) H 06/08/24 10:46 Urine Opiates Screen Positive ng/mL (Negative) H 06/08/24 06:02 Acetaminophen 12.8 ug/mL (10-30) 06/08/24 05:45 Ur Barbiturates Screen Negative ng/mL (Negative) 06/08/24 06:02 Ur Phencyclidine Scrn Negative ng/mL (Negative) 06/08/24 06:02 Ur Amphetamines Screen Negative ng/mL (Negative) 06/08/24 06:02 U Benzodiazepines Scrn Positive ng/mL (Negative) H 06/08/24 06:02 Urine Cocaine Screen Negative ng/mL (Negative) 06/08/24 06:02 U Marijuana (THC) Screen Negative ng/mL (Negative) 06/08/24 06:02 Ethyl Alcohol < 10 mg/dL (0-10) 06/08/24 05:45 SARS-CoV-2 Ag (Rapid) negative (Negative) 06/08/24 16:18 No radiology studies performed this visit Discharge Plan Discharge Patient Disposition: Xfer Short-Term Hosp Clinical Impression: Acute delirium, Hallucinations, Agitation Condition: Stable Referrals: Heidi Sullivan DO [Primary Care Provider] - 1-3 days Patient Instructions: Acute Delirium (ED) Activity Restrictions/Additional Instructions: Monitor for fever, worsening mental status changes, weakness, visual changes, etc. Return for any of these. Your doctor later today, they will want to see you this week in follow-up. Coding Level of Care Code ED Schedule Clerk for Jostin Cabrera
[2024-06-08 21:51] VITALS: BP 139/109; PULSE 113; RESP 20; O2SAT 98
--- NOTE | 2024-06-08 23:52 | PC.NURSE ---
Pt has completely undressed herself and is hallucinating and trying to do things with her hands and telling me she is getting ready for jehovah's witness and attempting to put a pillowcase on as a shirt. This nurse assisted patient to put scrubs back on and laid patient down in bed and covered with blankets. Pt still mumbling and moving arms.
--- NOTE | 2024-06-09 03:32 | DCPLANNER ---
Psychiatric Facilities Contacted: [facility] - called at [phone] to follow up on referral sent by day shift [facility]. Was advised that they had not yet had a chance to review it. [facility] - called at 2037, spoke to Kanchan. Paperwork faxed at [phone]. At 2214, [facility] called to deny patient due to high blood pressure and patient's inability to consent to treatment. [facility] - called at 2039, spoke to Doris. No beds available. [facility] - called at 2042, spoke to Heidi. No beds available. [facility] - called at 2219, spoke to Isidra. No beds available, patient is waitlisted. [facility] - called at 2222, spoke to Jolie. No beds available. [facility] - called at 2224, spoke to Tresa. No beds available. [facility]) - called at [phone], spoke to Daniela. 1 bed available, paperwork faxed at [phone]. At 318, called and spoke to Meghan to follow up. Patient was denied due to acuity. [facility] - called at [phone]. No beds available. [facility] - called at 321, spoke to Danielle. No beds available, patient is waitlisted.
[2024-06-09 06:13] VITALS: BP 134/77; PULSE 98; RESP 16; O2SAT 97
[2024-06-09 06:55] LABS: Blood Urea Nitrogen 10 mg/dL (8-23); Calcium 8.9 mg/dL (8.5-10.5); Carbon Dioxide 18 mmol/L (22-29); Chloride 99 mmol/L (98-107); Creatinine Clr Calc Pharmacy 70.1144; Glomerular Filtration Rate 99.4 mL/min (90-130); Glucose 135 mg/dL (65-115); Osmolality Calculated 277 mOsm/kg (285-295); Salicylate 0.4 mg/dL (3-10); Sodium 133 mmol/L (136-145)
[2024-06-09 06:59] LABS: Anion Gap 19.5 (5-19); Potassium 3.5 mmol/L (3.5-5.1)
[2024-06-09 09:39] VITALS: BP 134/77; PULSE 98; RESP 16; TEMP 36.6; O2SAT 97
== END 2024-06-09 08:50 | disposition short-term general hospital (02) ==
PROVIDERS: Emergency Medicine; Emergency Provider Family Medicine; PCP Family Medicine
DX: R41.0 Disorientation, unspecified (principal); R44.3 Hallucinations, unspecified; R45.1 Restlessness and agitation; Z11.52 Encounter for screening for COVID-19; I10 Essential (primary) hypertension; Z72.0 Tobacco use
CPT/HCPCS: 36415; 70450; 71045; 80048; 80053; 80306; 80307; 81003; 81015; 82140; 82803; 84443; 85025; 87426; 93005; 96361; 96374; 96375; 99285; J0696; J1630; J2060; J7030